=== PATIENT | male | born 1970 | race Caucasian/White ===

== ENCOUNTER 2021-04-09 11:30 | Emergency (ER) | payer BC ==
[~2021-04-09] VITALS: Ht 180.3 cm; Wt 96.0 kg
[2021-04-09] MEDS ORDERED: LIDOCAINE 5% PATCH TOP SCH (12:00)
[2021-04-09] MEDS ORDERED: HYDROCODONE/ACETAMINOPHEN 5/325MG TABLET PO ONE (12:00)
[2021-04-09] MEDS ORDERED: METHOCARBAMOL 500MG TABLET PO ONE (12:00)
[2021-04-09 12:31] VITALS: BP 171/102
[2021-04-09] MEDS ORDERED: HYDR-4001 MT (13:50)
[2021-04-09] MEDS ORDERED: LIDO1ADH5 TP (13:50)
[2021-04-09] MEDS ORDERED: METH-773 MT (13:50)
== END 2021-04-09 14:26 | disposition home or self-care (01) ==
LOC: ER 11:30
DX: G89.29 Other chronic pain (principal); M54.50 Low back pain, unspecified; I10 Essential (primary) hypertension; E11.9 Type 2 diabetes mellitus without complications
CPT/HCPCS: 99283

== ENCOUNTER → 2021-05-14 | Outpatient (CLI) | payer BC ==
[~2021-05-14] MED LIST: HYDR-4001 MT; LIDO1ADH5 TP; METH-773 MT
[2021-05-14 07:41] LABS: BASOPHILS % 0.4 % (0.0-2.0); EOSINOPHILS % 0.9 % (0.0-5.0); HEMATOCRIT. 37.4 % (42.0-52.0); HEMOGLOBIN. 13.3 g/dL (14.0-18.0); LYMPHOCYTES % 20.4 % (20.0-50.0); MEAN CORPUSCULAR HEMOGLOBIN 32.7 pg (28.0-32.0); MEAN PLATELET VOLUME 8.4 fl (7.4-10.4); MONOCYTES % 9.2 % (2.0-8.0); NEUTROPHILS % 69.1 % (40.0-76.0); PLATELET 225 x1000/uL (130-400); RED BLOOD CELL COUNT 4.06 mill/uL (4.7-6.1)
[2021-05-14 07:55] LABS: CHLORIDE 101 mEq/L (98-107)
[2021-05-14 08:00] LABS: PROSTRATE SPECIFIC AG TOTAL 1.72 ng/mL (0.0-4.0)
[2021-05-14 08:05] LABS: HDL CHOLESTEROL 44 mg/dL (40-59)
[2021-05-14 08:08] LABS: LDL CHOLESTEROL 50 mg/dL (5-100)
[2021-05-14 08:09] LABS: T4 FREE 1.26 ng/dL (0.76-1.46)
[2021-05-15 06:07] LABS: THYROID PEROXIDASE ANTIBODY < 8 IU/mL (0-34); VITAMIN D 25-OH 10.4 ng/mL (30.0-100.0)
== END | disposition home or self-care (01) ==
LOC: LAB 06:34
PROVIDERS: ATTEND Family Medicine
DX: Z00.00 Encounter for general adult medical examination without abnormal findings (principal); I10 Essential (primary) hypertension
CPT/HCPCS: 36415; 80053; 80061; 82306; 82607; 83036; 84153; 84439; 84443; 84481; 84681; 85025; 86376; G0103

== ENCOUNTER → 2021-09-10 | Outpatient (CLI) | payer BC ==
[2021-09-10 06:57] LABS: CHLORIDE 104 mEq/L (98-107)
[2021-09-10 07:10] LABS: HDL CHOLESTEROL 37 mg/dL (40-59); LDL CHOLESTEROL 65 mg/dL (5-100)
== END | disposition home or self-care (01) ==
LOC: LAB 06:10
PROVIDERS: ATTEND Family Medicine
DX: Z00.01 Encounter for general adult medical examination with abnormal findings (principal); I10 Essential (primary) hypertension; E11.65 Type 2 diabetes mellitus with hyperglycemia; E55.9 Vitamin D deficiency, unspecified
CPT/HCPCS: 36415; 80053; 80061; 82306; 83036

== ENCOUNTER → 2022-12-12 | Outpatient (CLI) | payer BC ==
[2022-12-12 07:02] LABS: BASOPHILS % 0.3 % (0.0-2.0); EOSINOPHILS % 1.6 % (0.0-5.0); HEMATOCRIT. 42.4 % (42.0-52.0); HEMOGLOBIN. 14.5 g/dL (14.0-18.0); LYMPHOCYTES % 20.7 % (20.0-50.0); MEAN CORPUSCULAR HEMOGLOBIN 32.1 pg (28.0-32.0); MEAN CORPUSCULAR HGB CONC 34.1 g/dL (31.0-37.0); MEAN CORPUSCULAR VOLUME 94.2 fL (80.0-94.0); MEAN PLATELET VOLUME 8.6 fl (7.4-10.4); MONOCYTES % 8.4 % (2.0-8.0); PLATELET 222 x1000/uL (130-400); RED CELL DISTRIBUTION WIDTH 13.3 % (11.6-14.6)
[2022-12-12 07:16] LABS: CHLORIDE 106 mEq/L (98-107); INDEX HEMOLYSI 1 (1-3); INDEX ICTERIC 1 (1-4); INDEX LIPEMIC 1 (1-3); POTASSIUM 3.9 mEq/L (3.5-5.1); SODIUM 137 mEq/L (136-145)
[2022-12-12 07:26] LABS: ALANINE AMINOTRANSFERASE 28 IU/L (13-61); ALBUMIN 3.6 g/dL (3.4-5.0); ASPARTATE AMINOTRANSFERASE 20 IU/L (15-37); BILIRUBIN TOTAL 0.9 mg/dL (0.1-1.0); CALCIUM 8.7 mg/dL (8.5-10.1); CARBON DIOXIDE 27 mEq/L (21-32); CHOLESTEROL 82 mg/dL (<200); CREATININE 0.7 mg/dL (0.6-1.3); GLUCOSE 150 mg/dL (70-105); HDL CHOLESTEROL 37 mg/dL (40-59); LDL CHOLESTEROL 43 mg/dL (5-100); PROTEIN TOTAL 7.7 g/dL (6.0-8.3); TRIGLYCERIDE 62 mg/dL (0-150); UREA NITROGEN BLOOD 16 mg/dL (7-21)
== END | disposition home or self-care (01) ==
LOC: LAB 05:59
DX: I10 Essential (primary) hypertension (principal); E11.65 Type 2 diabetes mellitus with hyperglycemia; E78.5 Hyperlipidemia, unspecified
CPT/HCPCS: 36415; 80053; 80061; 83036; 85025

== ENCOUNTER → 2023-02-17 | Outpatient (CLI) | payer BC ==
[2023-02-17 10:23] LABS: ALANINE AMINOTRANSFERASE 11 IU/L (10-49); ALBUMIN 4.4 g/dL (3.2-4.8); ASPARTATE AMINOTRANSFERASE 18 IU/L (<34); BILIRUBIN TOTAL 1.8 mg/dL (0.1-1.0); CALCIUM 9.1 mg/dL (8.7-10.4); CARBON DIOXIDE 28 mEq/L (21-32); CHLORIDE 103 mEq/L (98-107); CHOLESTEROL 65 mg/dL (<200); CREATININE 0.8 mg/dL (0.6-1.3); GLUCOSE 100 mg/dL (70-105); HDL CHOLESTEROL 28 mg/dL (>55); LDL CHOLESTEROL 34 mg/dL (5-100); POTASSIUM 4.2 mEq/L (3.5-5.1); PROTEIN TOTAL 7.2 g/dL (6.0-8.3); SODIUM 138 mEq/L (136-145); TRIGLYCERIDE 74 mg/dL (0-150); UREA NITROGEN BLOOD 12 mg/dL (9-23)
== END | disposition home or self-care (01) ==
LOC: LAB 09:37
PROVIDERS: ATTEND Family Medicine
DX: I10 Essential (primary) hypertension (principal); E11.65 Type 2 diabetes mellitus with hyperglycemia
CPT/HCPCS: 80053; 80061

== ENCOUNTER → 2023-09-19 | Outpatient (CLI) | payer BC ==
[~2023-09-19] MED LIST changes: +CEFP200T14 MT; +MUPI15CR11 TP; +TC1C15 TP
[2023-09-19 07:30] LABS: CHLORIDE 107 mEq/L (98-107); POTASSIUM 4.3 mEq/L (3.5-5.1); SODIUM 140 mEq/L (136-145)
[2023-09-19 07:31] LABS: CALCIUM 9.4 mg/dL (8.7-10.4); CARBON DIOXIDE 27 mEq/L (21-32)
[2023-09-19 07:33] LABS: BASOPHILS % 0.5 % (0.0-2.0); EOSINOPHILS % 2.7 % (0.0-5.0); HEMATOCRIT. 44.2 % (42.0-52.0); HEMOGLOBIN. 14.6 g/dL (14.0-18.0); LYMPHOCYTES % 28.2 % (20.0-50.0); MEAN CORPUSCULAR HEMOGLOBIN 31.5 pg (28.0-32.0); MEAN CORPUSCULAR HGB CONC 33.1 g/dL (31.0-37.0); MEAN CORPUSCULAR VOLUME 95.1 fL (80.0-94.0); MONOCYTES % 10.2 % (2.0-8.0); NEUTROPHILS % 58.4 % (40.0-76.0); PLATELET 242 x1000/uL (130-400); RED BLOOD CELL COUNT 4.64 mill/uL (4.7-6.1); RED CELL DISTRIBUTION WIDTH 13.4 % (11.6-14.6); WHITE BLOOD COUNT 6.9 x1000/uL (4.5-11.0)
[2023-09-19 07:36] LABS: CREATININE 0.8 mg/dL (0.6-1.3); GLUCOSE 151 mg/dL (70-105); TRIGLYCERIDE 72 mg/dL (0-150); UREA NITROGEN BLOOD 20 mg/dL (9-23)
[2023-09-19 07:37] LABS: LDL CHOLESTEROL 61 mg/dL (5-100)
[2023-09-19 07:38] LABS: ALANINE AMINOTRANSFERASE 18 IU/L (10-49); ALBUMIN 4.6 g/dL (3.2-4.8); ASPARTATE AMINOTRANSFERASE 21 IU/L (<34); BILIRUBIN TOTAL 1.2 mg/dL (0.1-1.0); CHOLESTEROL 115 mg/dL (<200); HDL CHOLESTEROL 38 mg/dL (>55)
[2023-09-19 07:39] LABS: PROTEIN TOTAL 7.6 g/dL (6.0-8.3)
[2023-09-19 07:40] LABS: T4 FREE 1.11 ng/dL (0.89-1.76)
[2023-09-20 09:07] LABS: PROSTATE SPECIFIC AG TOTAL 1.8 ng/mL (0.0-4.0); THYROID PEROXIDASE ANTIBODY < 9 IU/mL (0-34); VITAMIN D 25-OH 24.6 ng/mL (30.0-100.0)
== END | disposition home or self-care (01) ==
LOC: LAB 06:30
DX: E11.65 Type 2 diabetes mellitus with hyperglycemia (principal); I11.9 Hypertensive heart disease without heart failure; Z92.89 Personal history of other medical treatment
CPT/HCPCS: 36415; 80053; 80061; 82175; 82306; 83036; 83655; 83825; 84153; 84439; 84443; 84481; 85025; 86376